=== PATIENT | male | born 1965 | race Caucasian/White ===

== ENCOUNTER 2023-03-16 14:34 | Outpatient (CLI) | payer BC | END 2023-03-16 14:35 | disposition home or self-care (01) | LOC: CSHULT 14:34 | PROVIDERS: ATTEND Family Medicine | DX: M76.60 Achilles tendinitis, unspecified leg (principal); M67.971 Unspecified disorder of synovium and tendon, right ankle and foot | CPT/HCPCS: 76999 ==